=== PATIENT | female | born 1965 | race Caucasian/White ===

== ENCOUNTER 2022-12-11 07:16 | Emergency (ER) | payer SELFPAY ==
[2022-12-11] VITALS (27 sets, daily range): BP systolic 129–156; BP diastolic 73–99; PULSE 45–100; RESP 5–25; TEMP 35.8; O2SAT 96–100; BMI 22.9
--- NOTE | 2022-12-11 07:45 | CRLHL7_ITS ---
For Patients: As a result of the Cures Act, medical imaging exams and procedure reports are released immediately into your electronic medical record. You may view this report before your referring provider. If you have questions, please contact your health care provider. Indication: Injury and pain Technique: Left wrist 3 view Comparison: None Impression: Comminuted, impacted fracture of the distal radial metaphysis. Severe dorsal angulation of the distal fracture fragment. Additionally, there is a displaced distal ulna fracture. Question subtle lucency through the scaphoid waist suspicious for fracture. Soft tissue swelling about the wrist. Dictated by William Mercer MD @ 12/11/2022 8:14:22 AM (Electronically Signed)
--- NOTE | 2022-12-11 08:18 | ED_ITS ---
HPI - Extremity Injury (Upper) General Chief Complaint: Extremity Pain/Injury, Upper Stated Complaint: Fell on ice injured LT wrist Time Seen by Provider: 12/11/22 07:49 History of Present Illness HPI narrative: This 57-year-old female comes in with an injury to her left wrist. Just prior to arrival she slipped on ice and fell onto her left outstretched hand. She has an obvious deformity at her left wrist. She has a small abrasion on her left elbow but denies having any other injury. She did not hit her head or have loss of consciousness. She states he has not had anything to eat or drink this morning. Related Data Previous Rx's Medication Instructions Recorded hydrocodone 5 mg-acetaminophen 325 1 tab PO Q4-6H PRN pain #30 tabs 12/11/22 mg tablet Allergies Allergy/AdvReac Type Severity Reaction Status Date / Time No Known Drug Allergies Allergy Verified 12/11/22 09:41 Review of Systems Status of ROS: Reports: 10 or more systems reviewed and unremarkable except as noted in History and below Narrative: Constitutional: No fevers, no weight gain or loss. Eyes: No discharge. No vision changes. HENT: No congestion, no sore throat, no ear pain. Cardiovascular: No chest pain, no palpitations. Respiratory: No shortness of breath, no wheezes, no cough. Gastrointestinal: No abdominal pain, no vomiting, no diarrhea. Genitourinary: No dysuria, no hematuria. Musculoskeletal: Normal range of motion. Left wrist injury. Skin: No rashes, no pruritis. Neurological: No dizziness, weakness, sensory change, speech change. Endo/Heme/Allergies: No bruising or bleeding. No polydipsia. Pysch: no suicidality, no anxiety, no insomnia. All other systems reviewed and are negative. Exam Narrative: Exam Narrative: Constitutional: Well-developed, well-nourished, no acute distress. HEENT: Normocephalic, atraumatic. Neck: Normal range of motion. Nontender. Supple. Heart: Regular. No murmurs. Normal rate. Intact distal pulses. Lungs: Clear to auscultation. No chest discomfort. No wheezes, rhonchi, or rales. Abdomen: Normal bowel sounds. Nontender. No rebound tenderness. Genitalia: Deferred. Back: No midline tenderness. Normal range of motion. Extremities: Left wrist injury with dorsal angulation near the wrist joint. Skin: Intact. No rash. Warm. No erythema or pallor. Neurologic: No altered sensation. No weakness. Alert and oriented. Psychiatric: No suicidality. No anxiety or depression. No insomnia. Nursing notes and vitals signs are reviewed. Const: Vital Signs, click to edit/add: Vital Signs - 24 hr 12/11/22 07:31 12/11/22 08:46 12/11/22 08:50 Temperature 96.4 F L Pulse Rate 56 L 52 L Pulse Rate [Left R adial] Pulse Rate [Pulse Oximeter] 100 Respiratory Rate 16 Blood Pressure Blood Pressure [Ri ght Upper Arm] 129/73 Pulse Oximetry 96 99 100 Oxygen Delivery Me thod Room Air 12/11/22 08:52 12/11/22 08:55 12/11/22 08:57 Temperature Pulse Rate 55 L 56 L 67 Pulse Rate [Left R adial] Pulse Rate [Pulse Oximeter] Respiratory Rate 12 21 12 Blood Pressure 143/95 H 152/90 H Blood Pressure [Ri ght Upper Arm] Pulse Oximetry 100 100 100 Oxygen Delivery Me thod 12/11/22 09:00 12/11/22 09:01 12/11/22 09:05 Temperature Pulse Rate 49 L 52 L 60 Pulse Rate [Left R adial] Pulse Rate [Pulse Oximeter] Respiratory Rate 16 14 25 H Blood Pressure 146/90 H Blood Pressure [Ri ght Upper Arm] Pulse Oximetry 100 100 100 Oxygen Delivery Me thod 12/11/22 09:06 12/11/22 09:10 12/11/22 08:30 Temperature Pulse Rate 56 L 48 L Pulse Rate [Left R adial] Pulse Rate [Pulse Oximeter] Respiratory Rate 13 25 H Blood Pressure 156/99 H Blood Pressure [Ri ght Upper Arm] Pulse Oximetry 100 100 98 Oxygen Delivery Me thod 12/11/22 08:30 Temperature Pulse Rate Pulse Rate [Left R adial] 60 Pulse Rate [Pulse Oximeter] Respiratory Rate Blood Pressure Blood Pressure [Ri ght Upper Arm] Pulse Oximetry Oxygen Delivery Me thod Course Vital Signs Vital signs: Initial Vital Signs Temperature 96.4 F L 12/11/22 07:31 Temperature Source Tympanic 12/11/22 07:31 Pulse Rate 100 12/11/22 07:31 Pulse Rhythm 12/11/22 07:31 Pulse Strength 3+ Normal 12/11/22 07:31 Respiratory Rate 16 12/11/22 07:31 Blood Pressure 129/73 12/11/22 07:31 Blood Pressure Mean 91 12/11/22 07:31 Blood Pressure Position Sitting 12/11/22 07:31 Pulse Oximetry 96 12/11/22 07:31 Oxygen Delivery Method 12/11/22 07:31 Vital Signs Temperature 96.4 F L 12/11/22 07:31 Pulse Rate 100 12/11/22 07:31 Respiratory Rate 16 12/11/22 07:31 Blood Pressure 129/73 12/11/22 07:31 Pulse Oximetry 96 12/11/22 07:31 Oxygen Delivery Method 12/11/22 07:31 Temperature 96.4 F L 12/11/22 07:31 Pulse Rate 48 L 12/11/22 09:10 Respiratory Rate 25 H 12/11/22 09:10 Blood Pressure 156/99 H 12/11/22 09:06 Pulse Oximetry 100 12/11/22 09:10 Oxygen Delivery Method 12/11/22 07:31 MDM - Extremity Injury (Upper) MDM Narrative Medical decision making narrative: This patient comes in with a fracture of her left wrist that needs reduction. I discussed options with the patient including hematoma block and generals deep sedation in order to reduce the fracture. She preferred to have propofol sedat ion. She has not had anything by mouth since last evening. Anesthesia was contacted and assisted in this procedure. After acquiring informed consent the patient received 60 mg of propofol intravenously for adequate sedation. I reduced the fracture and observed results with x-ray imaging in the room. The patient was placed in a ortho glass sugar-tong splint over the left forearm. She was placed in a sling and received prescription for [place]. Arrangements are made for follow-up appointment with orthopedic clinic. Imaging Data XR L Wrist: Radiologist's impression: Comminuted, impacted fracture of the distal radial metaphysis. Severe dorsal angulation of the distal fracture fragment. Additionally, there is a displaced distal ulna fracture. Question subtle lucency through the scaphoid waist suspicious for fracture. Soft tissue swelling about the wrist. Post reduction views: FINDINGS: Fractures of the distal left radius and ulna are again noted. The distal radial fracture displacement has been reduced. There is mild dorsal tilt of the distal articular surface. IMPRESSION: Reduction in displacement of distal left radial fracture. Discharge Plan Discharge Clinical Impression: Fracture of wrist Patient Disposition: Home w/ Parent or Adult Condition: Improved Additional Instructions: Wear sling and use medications as needed and directed. Follow up with orthopedic clinic as scheduled. Return if worsening. Prescriptions: New hydrocodone-acetaminophen 5-325 mg tablet 1 tab PO Q4-6H PRN (Reason: pain) Qty: 30 0RF Follow Up/Referrals: Provider,Not a Local [Primary Care Provider] - Stand Alone Forms: [facility] Info Instructions
--- NOTE | 2022-12-11 08:59 | CRLHL7_ITS ---
For Patients: As a result of the Cures Act, medical imaging exams and procedure reports are released immediately into your electronic medical record. You may view this report before your referring provider. If you have questions, please contact your health care provider. HISTORY: Post reduction. TECHNIQUE: Lateral radiograph of the left wrist obtained without and with cast material. COMPARISON: 12/11/2021. FINDINGS: Fractures of the distal left radius and ulna are again noted. The distal radial fracture displacement has been reduced. There is mild dorsal tilt of the distal articular surface. IMPRESSION: Reduction in displacement of distal left radial fracture. Dictated by Paddy Camarillo MD @ 12/11/2022 9:36:30 AM Dictated by: Paddy Camarillo MD @ 12/11/2022 09:36:34 (Electronically Signed)
[2022-12-11] MEDS: PROPOFOL 10 MG/ML INJ 60 MG IV (09:04)
--- NOTE | 2022-12-11 09:16 | W.ANESCHARGE ---
Anesthesia Charges Start Date/Time Anesthesia Start Date: 12/11/22 Anesthesia Start Time: 08:56 Stop Date/Time Anesthesia Stop Date: 12/11/22 Anesthesia Stop Time: 09:12 Summary Emergency: ARABIC TRANSLATOR
[2022-12-11] MEDS: HYDROCODONE-ACETAMIN 5-325 MG 1 TAB PO (09:53)
== END 2022-12-11 10:50 | disposition home or self-care (01) ==
PROVIDERS: Emergency Provider Emergency Medicine Emergency Medical Services
DX: S52.352A Displaced comminuted fracture of shaft of radius, left arm, initial encounter for closed fracture (principal); W00.9XXA Unspecified fall due to ice and snow, initial encounter
CPT/HCPCS: 01820; 25605; 73100; 73110; 94761; 99140; 99284; 99291; A9270; J2704

== ENCOUNTER 2022-12-13 11:59 | Day surgery (SDC) | payer SELFPAY ==
[2022-12-13] MEDS: OXYCODONE (CR) 10 MG TAB.ER.12H PO (11:27)
[2022-12-13] MEDS: ACETAMINOPHEN 500 MG TABLET 1000 MG PO (11:27)
[2022-12-13] MEDS: LACTATED RINGERS 1000 ML 1,000 ML 100 ML IV ×2 (11:30→14:12)
[2022-12-13 12:14] VITALS: BMI 22.6
[2022-12-13 13:48] VITALS: BP 136/81; PULSE 69; RESP 16; O2SAT 97
[2022-12-13] MEDS: fentaNYL 100 MCG/2 ML inj IVP (13:48)
[2022-12-13] MEDS: MIDAZOLAM HCL 1 MG/ML inj IVP (13:48)
[2022-12-13 13:50] VITALS: BP 131/74; PULSE 68; RESP 16; O2SAT 99
--- NOTE | 2022-12-13 14:00 | CRLHL7_ITS ---
For Patients: As a result of the Cures Act, medical imaging exams and procedure reports are released immediately into your electronic medical record. You may view this report before your referring provider. If you have questions, please contact your health care provider. Indication: LEFT WRIST ORIF Technique: Four fluoroscopic images of the left wrist. Fluoroscopic time 28.1 seconds. IMPRESSION: Fluoroscopic guidance for open reduction internal fixation of distal radial fracture. Dictated by Tristen Lopes MD @ 12/13/2022 3:45:50 PM (Electronically Signed)
--- NOTE | 2022-12-13 14:03 | SUR.PREOP ---
TIME?OUT:?1347 PT/RN/MDA?VERIFICATION?OF?SURGICAL?SITE,?PROCEDURE,?AND?CONSENT OBTAINED?PRIOR?TO?INVASIVE?PROCEDURE.
[2022-12-13] MEDS: CEFAZOLIN 2 GM INJ IVP (14:05)
--- NOTE | 2022-12-13 14:21 | W.ANESCHARGE ---
Anesthesia Charges Start Date/Time Anesthesia Start Date: 12/13/22 Anesthesia Start Time: 13:59 Stop Date/Time Anesthesia Stop Date: 12/13/22 Anesthesia Stop Time: 15:07
--- NOTE | 2022-12-13 14:56 | P.ORPRC_ITS ---
Procedure Note Date of procedure: 12/13/22 Procedure: PREOPERATIVE DIAGNOSIS: Angulated 2 part extra-articular left upper extremity distal radius fracture POSTOPERATIVE DIAGNOSIS: Angulated 2 part extra-articular left upper extremity distal radius fracture NAME OF OPERATION: Open reduction internal fixation SURGEON: Darion Monroe MD RELIGION DEPARTMENT CHAIR: CALIN Almonte ANESTHESIA: Supraclavicular block plus monitored anesthesia care ESTIMATED BLOOD LOSS: 0 mL COMPLICATIONS: None SPECIMENS: None DRAINS: None PREOPERATIVE ANTIBIOTICS: Ancef 2 grams INDICATIONS: The patient is a 57-year-old who fell landing on their upper extremity sustaining the above injury. Given the amount of angulation, reduction and plate fixation were recommended. The risks, benefits and expected outcomes were discussed in detail. These included but were not limited to: Infection, bleeding, injury to blood vessel or nerve, venous thromboembolism. All questions were answered to their satisfaction. Use of an family service assistant was necessary throughout the case for patient positioning and safety, maintenance of the reduction, surgical site dressing and splint application. PROCEDURE: A supraclavicular block was placed by Anesthesia. The patient was placed supine on the operating room table. IV sedation was administered. The reduction was obtained with longitudinal traction and volar force on the distal fragment, held by the family service assistant. The image intensifier was used to confirm an excellent reduction. The extremity was prepped and draped in the usual sterile fashion. The limb was exsanguinated with the [place] bandage. The pneumatic tourniquet was inflated to 250 mm of mercury. A longitudinal incision was made over the flexor carpi radialis. Subcutaneous dissection was taken sharply through the FCR sheath. The FCR was retracted radially. Sharp dissection was carried through the floor of the FCR sheath. The flexor pollicis longus was retracted ulnarly. Sharp dissection was carried through the radial border of the pronator quadratus which was elevated ulnarly, exposing the fracture site. The family service assistant held retractors to expose the fracture. The volar cortex of the fracture is anatomically aligned. We placed a Synthes standard 6 hole volar locking plate over the volar cortex. It was provisionally held with 2 BB tacks, while the family service assistant held the reduction. Its placement was confirmed with the image intensifier. We placed a cortical screw in the slot. We placed a locking screw in the shaft. We then filled the distal screw holes with smooth locking pegs using the image intensifier to confirm their extra-articular placement. Finally, a 2nd locking screw was placed in the shaft fragment. This construct was imaged in multiple views and was felt to be well placed with an anatomic reduction and well placed implants. The wound was irrigated normal saline. Subcutaneous tissues were reapproximated a 2-0 Vicryl, skin with a running 3-0 Monocryl in a subcuticular fashion. Glue was used to seal the skin. A dry dressing and short-arm dorsal volar splint was applied. These steps were all completed by the family service assistant. The tourniquet was released, sponge and needle counts were correct x2. The patient tolerated the procedure well, there were no apparent complications. They were taken to the postanesthesia care unit in satisfactory condition. PLAN: The patient will be discharged home. They will work on elevation of the hand and active range of motion of the fingers. They will follow up next week in the office for a wound check with a PA, oblique, lateral and fossa lateral view of the wrist out of the splint prior to being seen in preparation for early active motion with Orthoplast splint protection.
[2022-12-13 15:05] VITALS: BP 107/69; PULSE 61; RESP 16; TEMP 36.9; O2SAT 95
--- NOTE | 2022-12-13 15:09 | W.PM.NB ---
Nerve Block Nerve Block Time Seen by Provider: 13:53 Date Seen: 12/13/22 Type of block requested by surgeon for post-operative analgesia: axillary Side: left Time out performed: Yes Verification of patient name: Yes Verification of date of : Yes Site marking: site marked Name of person performing procedure: Riley Continuous monitoring Was continuous monitoring of O2 sat, B/P, director cardiac, recorded every 15 minutes?: Yes Procedure Checklist: sterile prep, needles and gloves Ultrasound guided. Images saved: Yes Medications given in 5ml increments after negative aspiration: Ropivicaine %: 0.5 mL: 30 Needle gauge: 22 Patient tolerated procedure well: Yes Additional comments: Needle noted adjacent to nerve Block Charges Block Charge (with Pro Fee): Brachial Plexus Use of Ultrasound Machine for Block: Yes- US Guidance/pain block
--- NOTE | 2022-12-13 15:09 | W.ANESCHARGE ---
Anesthesia Charges Start Date/Time Anesthesia Start Date: 12/13/22 Anesthesia Start Time: 13:59 Stop Date/Time Anesthesia Stop Date: 12/13/22 Anesthesia Stop Time: 15:07
[2022-12-13 15:15] VITALS: BP 118/77; PULSE 51; RESP 16; O2SAT 96
[2022-12-13 15:30] VITALS: BP 126/78; PULSE 48; RESP 16; O2SAT 96
[2022-12-13 15:43] VITALS: BP 143/65; PULSE 48; RESP 16; O2SAT 96
== END 2022-12-13 15:58 | disposition home or self-care (01) ==
PROVIDERS: Visit Provider Orthopaedic Surgery
PROC: (CPT 25575; principal; 2022-12-13 14:00)
DX: S52.552A Other extraarticular fracture of lower end of left radius, initial encounter for closed fracture (principal); G89.18 Other acute postprocedural pain
CPT/HCPCS: 25607; 01810; 01830; 64415; 73110; 76000; 76942; A4580; A9270; C1713; J0690; J2250; J2704; J2795; J3010; J7120

== ENCOUNTER 2023-03-17 14:30 | Outpatient (RCR) | payer SELFPAY | END 2023-06-30 16:20 | disposition home or self-care (01) | PROVIDERS: Visit Provider Orthopaedic Surgery | DX: S62.102A Fracture of unspecified carpal bone, left wrist, initial encounter for closed fracture (principal); Z51.89 Encounter for other specified aftercare | CPT/HCPCS: 97110; 97140; 97165; L3906; X5282 ==